=== PATIENT | female | born 1970 ===

== ENCOUNTER 2019-10-31 13:41 | Emergency (ER) | payer OTHER, SELFPAY ==
[2019-10-31 14:35] VITALS: BP 170/100; PULSE 79; RESP 20; TEMP 36.3; O2SAT 99
--- NOTE | 2019-10-31 15:06 | ED.LOWEXIN ---
HPI - Extremity Injury (Lower) General Chief Complaint: Extremity Injury, Lower Stated Complaint: fall/leg &elbow Time Seen by Provider: 10/31/19 15:06 Source: patient Mode of arrival: ambulatory Limitations: no limitations History of Present Illness HPI Narrative: Cassidy Scruggs is a 49 yo female with a PMH of asthma who fell while moving her car this morning for workers at her house. Patient states that she has a lot of pain in her knee and elbow but is able to move both Related Data Home Medications Medication Instructions Recorded Confirmed albuterol sulfate [ProAir 1 inh INHALATION 10/31/19 RespiClick] fluticasone furoate-vilanterol 1 inh INHALATION DAILY 10/31/19 10/31/19 [Breo Ellipta] Allergies Allergy/AdvReac Type Severity Reaction Status Date / Time Penicillins Allergy Unknown Hives Verified 10/31/19 14:44 Review of Systems Review of Systems: Narrative: CONSTITUTIONAL: Denies fever, chills, sweats. EYES: Denies visual changes, redness, discharge. ENT: Denies rhinorrhea, congestion, sore throat, otalgia. CARDIOVASCULAR: Denies chest pain, palpitations, edema. RESPIRATORY: Denies dyspnea, wheezing, cough GASTROINTESTINAL: Denies abdominal pain, nausea, vomiting, diarrhea. GENITOURINARY: Denies dysuria, hematuria, abnormal discharge SKIN: Denies rash or itching. Abrasion of left leg and left elbow NEUROLOGIC: Denies numbness, or focal weakness. PSYCHIATRIC: Denies anxiety or depression. PMFSH Family History Family History Other No active medical problems Social History Social History Smoking status: Never smoker Alcohol intake: never Gender identity (if verbalized by the patient): Female Comments At time of signature, I agree with nursing past medical, surgical, social and family history. There is no relevant family history pertinent to the presenting complaint. Blood pressure is elevated at this visit probably due to pain but recommended to follow-up with primary care physician Exam Narrative: Exam Narrative: GENERAL: This is a well-nourished, well-developed patient, in mild distress. HEAD: normocephalic, atraumatic. EYES: PERRL. Sclera clear/white. Vision is grossly intact. EARS: External ears normal, auditory canals clear and without drainage, TMs normal without perforation. Hearing grossly intact. NOSE: External nose normal without nasal discharge, nares without redness, no rhinorrhea. THROAT: Mucous membranes moist, posterior pharynx NECK: Neck supple, non-tender CARDIOVASCULAR: Regular rate and rhythm without murmurs, gallops, or rubs. RESPIRATORY: Clear to auscultation. Breath sounds equal bilaterally. No wheezes, rales, or rhonchi. GASTROINTESTINAL: Abdomen soft, non-tender, SKIN: warm, intact with abrasion to the left lateral lower leg with no joint involvement , left elbow NEURO: awake, alert, and oriented to person, place and time. There were no obvious focal neurologic abnormalities. Steady gait EXTREMITIES: Normal range of motion. BACK: Nontender without deformity Course Course Emergency Course: Wounds cleaned; Telfa placed over wound and patient started on ibuprofen 800 3 times daily Vital Signs Vital signs: Vital Signs Temperature 97.4 F L 10/31/19 14:35 Pulse Rate 79 10/31/19 14:35 Respiratory Rate 20 10/31/19 14:35 Blood Pressure 170/100 H 10/31/19 14:35 Pulse Oximetry 99 10/31/19 14:35 Temperature 97.4 F L 10/31/19 14:35 Pulse Rate 79 10/31/19 14:35 Respiratory Rate 20 10/31/19 14:35 Blood Pressure 170/100 H 10/31/19 14:35 Pulse Oximetry 99 10/31/19 14:35 MDM - Extremity Injury (Lower) Differential Diagnosis Differential diagnosis: Likely puncture wound of foot and other (Abrasion versus contusion versus fracture) Discharge Plan Discharge Clinical Impression: Abrasion of left lower leg Qualifiers:
== END 2019-10-31 15:30 | disposition home or self-care (01) ==
PROVIDERS: Emergency Provider Nurse Practitioner; PCP Family Medicine
DX: S80.812A Abrasion, left lower leg, initial encounter (principal); S50.312A Abrasion of left elbow, initial encounter; W19.XXXA Unspecified fall, initial encounter
CPT/HCPCS: 99213; G0463

== ENCOUNTER 2024-01-23 15:15 | Emergency (ER) | payer OTHER, SELFPAY ==
[2024-01-23 15:18] VITALS: BP 172/85; PULSE 71; RESP 20; TEMP 36.8; O2SAT 99
--- NOTE | 2024-01-23 17:05 | ED.GENADULT ---
HPI - General Adult General Chief complaint: Extremity Problem,Nontraumatic Stated complaint: Right Arm Pain Source: patient Mode of arrival: ambulatory Limitations: no limitations History of Present Illness HPI narrative: Patient presents for evaluation of a lesion to the right forearm. She first noticed her symptoms four days ago. She cannot identify any precipitating cause or injury. She denies any associated warmth or redness. She noted some skin color changes surrounding the area. Two days ago she put her right elbow against and armrest and noted pain in the right elbow. She was unsure whether her pain was related to the arm lesion. No loss of range of motion. Related Data Home Medications Medication Instructions Recorded Confirmed albuterol sulfate 90 mcg/actuation 1 inh inhalation 10/31/19 07/26/21 breath activated powder inhaler (ProAir RespiClick) fluticasone furoate 200 1 inh inhalation DAILY 10/31/19 07/26/21 mcg-vilanterol 25 mcg/dose inhalation powder (Breo Ellipta) Bacillus coagulans 800 million cell PO 07/26/21 07/26/21 cell tablet (Digestive Advantage Probiotics-Prebiotic) biotin 10,000 mcg capsule mcg PO 07/26/21 07/26/21 cetirizine 10 mg tablet (Zyrtec) 10 mg PO DAILY PRN 07/26/21 07/26/21 fluticasone propionate 50 1 spray intranasal DAILY 07/26/21 07/26/21 mcg/actuation nasal spray,suspension (Flonase Allergy Relief) milk thistle seed tablet PO 07/26/21 07/26/21 lq-lwrztbanri-nisvhutyt-turmeri 250 mg-250 mg tablet multivitamin 1 tablet PO DAILY 07/26/21 07/26/21 Allergies Allergy/AdvReac Type Severity Reaction Status Date / Time Penicillins Allergy Unknown Hives Verified 01/23/24 15:21 Review of Systems Review of Systems: CONSTITUTIONAL: Denies fever, chills, or sweats. EYES: Denies visual changes, redness, or discharge. ENT: Denies rhinorrhea, congestion, sore throat, or otalgia. CARDIOVASCULAR: Denies chest pain, palpitations, or edema. RESPIRATORY: Denies cough or dyspnea. GASTROINTESTINAL: Denies abdominal pain, nausea, vomiting, or diarrhea. GENITOURINARY: Denies dysuria or hematuria. SKIN: Reports recent lesion to the proximal right forearm with surrounding skin color changes MUSCULOSKELETAL: Reports recent pain in right elbow, none currently. Denies back pain, other joint pain, or myalgia. NEUROLOGIC: Denies headache, numbness, dizziness, or weakness. PSYCHIATRIC: Denies anxiety or depression. [facility] Past Medical History Medical History Asthma BMI 45.0-49.9, adult Sciatic leg pain Surgical History Surgical History No pertinent past surgical history Family History Family History Mother Family history non-contributory Other No active medical problems Social History Social History Smoking status: Never smoker Alcohol intake: never Substance use: never Living arrangements: with family Gender identity (if verbalized by the patient): Female Spiritual care concerns: No Exam Narrative: GENERAL: Well-appearing, well-nourished, and in no acute distress. HEAD: Normocephalic, atraumatic. EYES: PERRLA and EOMI. ENT: Nares clear, no rhinorrhea or epistaxis. Mucous membranes moist. Oropharynx without tonsillar hypertrophy exudate or other lesions. Bilateral TMs pearly henriquez nonbulging NECK: Supple. No adenopathy or masses. No carotid bruits or JVD CHEST: Clear to auscultation. No respiratory distress. No wheezes rales or rhonchi HEART: Regular rate and rhythm. No murmur heard. Normal peripheral pulses. ABDOMEN: Soft, nontender, nondistended, normal active bowel sounds. EXTREMITIES: full range of motion of the right elbow. No crepitus or deformity. No tenderness. SKIN: There is an dev
== END 2024-01-23 17:08 | disposition home or self-care (01) ==
PROVIDERS: Emergency Provider Nurse Practitioner; PCP Family Medicine
DX: L72.9 Follicular cyst of the skin and subcutaneous tissue, unspecified (principal); J45.909 Unspecified asthma, uncomplicated
CPT/HCPCS: 99211; G0463

== ENCOUNTER 2024-01-29 14:08 | Outpatient (CLI) | payer OTHER, SELFPAY ==
--- NOTE | ~2024-01-29 | XR_ITS ---
XR hand RT 2V Ordering provider: Beatriz Flores APRN History: . M25.50 - Pain in unspecified joint . Comparison: None. FINDINGS: BONES: No acute fracture or dislocation. JOINT SPACES: Normal. SOFT TISSUES: Normal. IMPRESSION: No acute osseous abnormality right hand. Reviewed, dictated and finalized at location A.
--- NOTE | ~2024-01-29 | XR_ITS ---
XR elbow RT min 3V Ordering provider: Beatriz Flores APRN History: . M25.50 - Pain in unspecified joint . Comparison: None. FINDINGS: BONES: No acute fracture or dislocation. JOINT SPACES: Normal. SOFT TISSUES: Unremarkable. No definite joint effusion. IMPRESSION: No acute osseous abnormality of the right elbow. Reviewed, dictated and finalized at location A.
== END 2024-01-29 14:09 | disposition home or self-care (01) ==
LOC: MICIMG 14:09
PROVIDERS: PCP Nurse Practitioner Adult Health; Visit Provider Nurse Practitioner Adult Health
DX: M25.50 Pain in unspecified joint (principal); R60.9 Edema, unspecified; R60.0 Localized edema
CPT/HCPCS: 73080; 73120

== ENCOUNTER 2024-02-08 12:47 | Outpatient (CLI) | payer OTHER, SELFPAY ==
--- NOTE | ~2024-02-08 | US_ITS ---
EXAMINATION: US soft tissue UE RT DATE: 02/08/2024 12:59 INDICATION: Localized swelling, mass or lump at the right forearm TECHNIQUE: Multiple grayscale and Doppler ultrasound images of the region of concern along the green chain off bearer ior right forearm were obtained. COMPARISON: None FINDINGS: There is a normal appearance to the subcutaneous fat and underlying musculature at the region of conc wiliam. There is also a smooth echogenic and shadowing cortical margin to the underlying bone. No abnorm al masses or fluid collections identified. IMPRESSION: 1. Normal study with no abnormal masses or fluid collections identified at the region of concern at t he posterior right forearm. Reviewed, dictated and finalized at location A. IMPRESSION: 1. Normal study with no abnormal masses or fluid collections identified at the region of concern at the posterior right forearm.
== END 2024-02-08 12:48 | disposition home or self-care (01) ==
LOC: MICIMG 12:48
PROVIDERS: PCP Nurse Practitioner Adult Health; Visit Provider Nurse Practitioner Adult Health
DX: R22.31 Localized swelling, mass and lump, right upper limb (principal)
CPT/HCPCS: 76882